=== PATIENT | female | born 1955 | race Caucasian/White ===

== ENCOUNTER 2018-07-18 16:23 | Emergency (ER) | END 2018-07-18 20:45 | disposition home or self-care (01) ==

== ENCOUNTER 2018-11-03 07:09 | Emergency (ER) | payer MEDICARE, OTHER ==
[~2018-11-03] VITALS: Wt 60.6 kg
[~2018-11-03 07:09] MED LIST: BP PILL PO; CHOLESTEROL MED PO; CITA10TA10 PO; OXYC-281 PO; PHEN-538 PO; STOMACH PILL PO
[2018-11-03 07:14] VITALS: BP 166/74; PULSE 77; RESP 17
[2018-11-03] MEDS ORDERED: NAPR-985 PO (08:41)
[2018-11-03] MEDS ORDERED: MED4DP PO (08:41)
--- NOTE | 2018-11-03 10:26 | ERD ---
ER Documentation Chief Complaint Chief Complaint ELEVATED BP, GENERALIZED WEAKNESS, ONSET 2 DAYS HPI 63-year-old female presenting with generalized weakness and headache. Patient has nausea but no vomiting. She states her right arm has been weak this morning. She has some mild neck pain and denies any chest pain or troubles veronique thing. She is concerned because her blood pressure has been elevated at home. Denies any visual changes. Medical history is hypertension, hypercholesterolemia and depression. NKDA. Surgical history and appendectomy. Social history smokes a pack a day. ROS All systems reviewed and are negative except as per history of present illness. Medications Home Meds Active Scripts Naproxen* (Naprosyn*) 500 Mg Tablet, 500 MG PO BID PRN for PAIN AND/OR INFLAMMATION, #30 TAB Prov:JIM SOTO PA-C 11/03/18 Methylprednisolone* (Medrol* DOSE PACK) 4 Mg/Dose-Pack Tab.ds.pk, 4 MG PO . 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 12/16/15 Reported Medications [Stomach Pill] No Conflict Check, PO DAILY 11/17/13 [Cholesterol Med] No Conflict Check, PO DAILY 11/17/13 [Bp Pill] No Conflict Check, PO DAILY 11/17/13 Citalopram Hydrobromide* (Celexa*) 10 Mg Tablet, 40 MG PO DAILY 11/17/13 Allergies Allergies: Coded Allergies: No Known Drug Allergies (Unverified Allergy, Unknown, 02/05/14) PMhx/Soc History of Surgery: Yes (CSECTION) Anesthesia Reaction: No Hx Neurological Disorder: No Hx Respiratory Disorders: No Hx Cardiac Disorders: Yes (HTN-HIGH CHOLESTEROL) Hx Psychiatric Problems: Yes (DEPRESSION) Hx Miscellaneous Medical Probl: Yes Hx Alcohol Use: No Hx Substance Use: No Hx Tobacco Use: Yes Smoking Status: Current every day smoker Fmx Family History: No diabetes, No coronary disease, No other Physical Exam Vitals Vital Signs Date Temp Pulse Resp B/P (MAP) Pulse Ox O2 O2 Flow FiO2 Time Delivery Rate 11/03/18 96.8 77 17 166/74 100 07:14 (104) Physical Exam GENERAL: The patient is well-appearing, well-nourished, in no acute distress HEENT: Atraumatic. Conjunctivae are pink. Pupils equal, round, and reactive to light. There is no scleral icterus. Tympanic membranes clear bilaterally. Oropharynx clear. NECK: C-spine is soft and supple. There is no meningismus. CHEST: Clear to auscultation bilaterally. There are no rales, wheezes or rhonchi. HEART: Regular rate and rhythm. No murmurs, clicks, rubs or gallops. EXTREMITIES: Equal pulses bilaterally. There is no peripheral clubbing, cyanosis or edema. No focal swelling or erythema. Full range of motion. Grossly neurovascularly intact. NEUROLOGIC: Alert and oriented. Cranial nerves II through XII intact. Motor strength in all 4 extremities with 5 out of 5 strength. Sensation grossly intact. Normal speech and gait. SKIN: There is no apparent rash or petechiae. The skin is warm and dry. Result Diagram: 11/03/18 0741 11/03/18 0741 Results 24 hrs Laboratory Tests Test 11/03/18 07:41 White Blood Count 7.8 10^3/ul Red Blood Count 4.62 10^6/ul Hemoglobin 13.9 g/dl Hematocrit 42.6 % Mean Corpuscular Volume 92.2 fl Mean Corpuscular Hemoglobin 30.1 pg Mean Corpuscular Hemoglobin Concent 32.6 g/dl Red Cell Distribution Width 14.6 % Platelet Count 259 10^3/UL Mean Platelet Volume 10.7 fl Immature Granulocytes % 0.100 % Neutrophils % 52.6 % Lymphocytes % 29.8 % Monocytes % 5.1 % Eosinophils % 11.5 % Basophils % 0.9 % Nucleated Red Blood Cells % 0.0 /100WBC Immature Granulocytes # 0.010 10^3/ul Neutrophils # 4.1 10^3/ul Lymphocytes # 2.3 10^3/ul Monocytes # 0.4 10^3/ul Eosinophils # 0.9 10^3/ul Basophils # 0.1 10^3/ul Nucleated Red Blood Cells # 0.0 10^3/ul Urine Color STRAW Urine Clarity CLEAR Urine pH 5.0 Urine Specific [place] 1.010 Urine Ketones NEGATIVE mg/dL Urine Nitrite NEGATIVE mg/dL Urine Bilirubin NEGATIVE mg/dL Urine Urobilinogen NEGATIVE mg/dL Urine Leukocyte Esterase NEGATIVE Harsh/ul Urine Microscopic RBC 2 /HPF Urine Microscopic WBC 1 /HPF Urine Squamous Epithelial Cells FEW /HPF Urine Hemoglobin 1+ mg/dL Urine Glucose NEGATIVE mg/dL Urine Total Protein 2+ mg/dl Sodium Level 144 mmol/L Potassium Level 4.2 mmol/L Chloride Level 106 mmol/L Carbon Dioxide Level 30 mmol/L Anion Gap 8 Blood Urea Nitrogen 18 mg/dl Creatinine 1.00 mg/dl Est Glomerular Filtrat Rate mL/min 56 mL/min Glucose Level 96 mg/dl Calcium Level 9.9 mg/dl Total Bilirubin 0.1 mg/dl Direct Bilirubin 0.00 mg/dl Indirect Bilirubin 0.1 mg/dl Aspartate Amino Transf (AST/SGOT) 29 IU/L Alanine Aminotransferase (ALT/SGPT) 33 IU/L Alkaline Phosphatase 64 IU/L Troponin I < 0.012 ng/ml Total Protein 7.2 g/dl Albumin 4.3 g/dl Globulin 2.90 g/dl Albumin/Globulin Ratio 1.48 Lipase 52 U/L Procedures/MDM DIAGNOSTIC IMAGING REPORT Patient: SHAQ LEE : 1955 Age: 63 Sex: F MR #: [id number] DOS: 11/03/18 0737 Ordering MD: ASHWIN SOTO PA-C Location: [facility] Room/Bed: PROCEDURE: CT Brain without contrast. CLINICAL INDICATION: Hypertension, right arm weakness. TECHNIQUE: A CT of the brain was performed on a [employer] 64-slice CT scanner utilizing axial imaging from the skull base through the vertex without IV contrast. Multiplanar reformatted images were made. Images were reviewed on a PACS workstation. The CTDIvol is 38.29 mGy and the DLP is and 634.23 mGycm. One or more of the following dose reduction techniques were used: automated exposure control, adjustment of the mA and/or kV according to patient size, or use of iterative reconstruction technique. DICOM images are available. COMPARISON: CT BRAIN 02/05/2014 FINDINGS: There is no intracranial hemorrhage, mass effect, or midline shift. No extra- axial fluid collection is seen. The ventricles and sulci are normal in size and configuration. The density of the brain is normal, and the ramirez white matter differentiation appears well-preserved. The brainstem and cerebellum are normal in density. The visualized paranasal sinuses are clear. The calvarium is normal. IMPRESSION: 1. No evidence of acute intracranial pathology. EKG: Rate/Rhythm: 67 bpm normal Sinus Rhythm QRS, ST, T-waves: No changes consistent w/ acute ischemia Impression: No evidence of ischemia or arrhythmia MDM: 63-year-old female presenting with paresthesias to her right arm and high blood pressure. I have low suspicion for hypertensive emergency. Patient's blood work is within normal limits. Exam is non-concerning. I have low suspicion for intracranial hemorrhage or neuro deficit. Neuro exam is within normal limits and CT scan of the brain is normal. Blood work is stable. Patient is recommended to follow-up with primary care doctor if she needs a hypertension medication adjusted. Patient is told symptoms change or worsen to immediately return to the ER. All questions answered at discharge Departure Diagnosis: Primary Impression: Paresthesia Condition: Stable Patient Instructions: Paraesthesias Referrals: PENDING SALE TO [facility] YOU HAVE RECEIVED A MEDICAL SCREENING EXAM AND THE RESULTS INDICATE THAT YOU DO NOT HAVE A CONDITION THAT REQUIRES URGENT TREATMENT IN THE EMERGENCY DEPARTMENT. FURTHER EVALUATION AND TREATMENT OF YOUR CONDITION CAN WAIT UNTIL YOU ARE SEEN IN YOUR DOCTORS OFFICE WITHIN THE NEXT 1-2 DAYS. IT IS YOUR RESPONSIBILITY TO MAKE AN APPOINTMENT FOR FOLOW-UP CARE. IF YOU HAVE A PRIMARY DOCTOR --you should call your primary doctor and schedule an appointment IF YOU DO NOT HAVE A PRIMARY DOCTOR YOU CAN CALL OUR PHYSICIAN REFERRAL HOTLINE AT IF YOU CAN NOT AFFORD TO SEE A PHYSICIAN YOU CAN CHOSE FROM THE FOLLOWING PENDING SALE TO [facility] [address] [facility]. [facility] [address] [facility] [address] [facility]. [facility] [address] [facility]. [facility] [address] [facility]. [facility] [address] Additional Instructions: FOLLOW UP WITH YOUR PRIMARY CARE PHYSICIAN TOMORROW.Return to this facility if you are not improving as expected. JIM SOTO PA-C Nov 03, 2018 10:26
== END 2018-11-03 08:58 | disposition home or self-care (01) ==
LOC: FTE 07:09
DX: R20.2 Paresthesia of skin (principal); I10 Essential (primary) hypertension; F17.210 Nicotine dependence, cigarettes, uncomplicated
CPT/HCPCS: 36415; 70450; 80053; 81001; 83690; 84484; 85025; 93005